=== PATIENT | male | born 1975 | race Hispanic/Latino ===

== ENCOUNTER 2017-08-12 00:42 | Emergency (ER) | payer BC ==
[2017-08-12 01:37] LABS: Hematocrit 37.5 % (42.0-52.0); Mean Platelet Volume 7.6 fL (7.4-10.4); Red Blood Cell (RBC) Count 3.99 mill/uL (4.70-6.10)
[2017-08-12 01:38] LABS: Neutrophil 32 % (42-75)
[2017-08-12 01:43] LABS: ALT (SGPT) 20 U/L (8-55); AST (SGOT) 19 U/L (5-34); Alkaline Phosphatase 139 U/L (40-150); Anion Gap 13 mmol/L (10-20); BUN (Urea Nitrogen) 13 mg/dL (8.9-20.6); Bilirubin, Total 0.4 mg/dL (0.2-1.2); Calc. Creatinine Clearance 0 mL/min (70-130); Calcium 9.6 mg/dL (7.8-10.44); Carbon Dioxide 27 mmol/L (22-29); Chloride 103 mmol/L (98-107); Estimated GFR-MDRD 74; Globulin 2.8 g/dL (2.4-3.5); Lipase 31 U/L (8-78)
[2017-08-12] MEDS ORDERED: Ondansetron HCl/PF 4 MG/2 ML Vial ONE (01:46)
[2017-08-12] MEDS ORDERED: Ketorolac Tromethamine 30 MG/ML VIAL ONE (02:16)
[2017-08-12 04:05] LABS: Bilirubin Negative (Negative); Blood, Urine Trace (Negative); Glucose, Urine (Dipstick) Negative (Negative); Ketone, Urine Negative (Negative); Nitrite Negative (Negative); Protein, Urine (Dipstick) 30 mg/dL (Neg-Trace)
[2017-08-12 04:19] LABS: Bacteria/HPF None Seen HPF (None Seen); Hyaline Casts/LPF NONE SEEN LPF (0-3 Hyaline); Squamous Epithelial None Seen HPF (0-3); WBC/HPF None Seen HPF (0-3)
--- NOTE | 2017-08-12 09:06 | CT ---
PRELIMINARY REPORT/[facility]/EMERGENCY AFTER HOURS PROCEDURE: EXAM: CT Abdomen and Pelvis With Intravenous Contrast EXAM DATE/TIME: Exam ordered 08/12/2017 1:58 AM CLINICAL HISTORY: 41 years old, male; Pain; Abdominal pain; Localized; Right lower quadrant (rlq); Patient HX: Er 3; 3 9m with pmhx chronic back pain, C/O sharp rlq abdominal pain starting at 2330, with associated nause a, no vomiting. Pain is increasing, had small, soft bm without relief. Afebrile. TECHNIQUE: Axial computed tomography images of the abdomen and pelvis with intravenous contrast. Coronal reformatted images were created and reviewed. CONTRAST: 95 mL of isovue 370 administered intravenously. COMPARISON: No relevant prior studies available. FINDINGS: Lower thorax: There is subpleural atelectasis of the dependent portions of the lungs. ABDOMEN: Liver: There are no focal liver lesions present. Gallbladder and bile ducts: The gallbladder is normal. There is no evidence of biliary ductal dilati on. No calcified stones. Pancreas: The pancreas is normal. No ductal dilation. Spleen: The spleen is normal. Adrenals: The adrenal glands are normal. Kidneys and ureters: There is a punctate 2 x 2 mm obstructing calculus at the RIGHT UVJ with associa yonas mild RIGHT hydroureteronephrosis. The left kidney is normal. Stomach and bowel: Patient is post leads gastrectomy. No evidence for leak or abscess. The duodenum is unremarkable. The colon is normal. There is no evidence of intestinal perforation or obstruction. Appendix: No appendix is specifically identified. There is no evidence of fluid collections or infla mmatory stranding in the right lower quadrant. PELVIS: Bladder: The bladder is normal. Reproductive: The prostate gland and seminal vesicles are normal. ABDOMEN and PELVIS: Intraperitoneal space: Normal. No free air. No significant fluid collection. Bones/joints: No acute fracture. No dislocation. Soft tissues: Normal. Vasculature: Normal. No abdominal aortic aneurysm. Lymph nodes: Normal. No enlarged lymph nodes. IMPRESSION: There is a punctate 2 x 2 mm obstructing calculus at the RIGHT UVJ with associated mild RIGHT hydrou reteronephrosis. Thank you for allowing us to participate in the care of your patient. Dictated and Authenticated by: Dru Mccormick MD 08/12/2017 2:28 AM Central Time ([place] \T\ [place]) FINAL REPORT ABDOMEN CT WITH CONTRAST PELVIC CT WITH CONTRAST: History: Chronic back pain. Sharp right lower quadrant abdominal pain with associated nausea. Comparison: None. Technique: Abdomen and pelvic CT performed with IV contrast. Coronal reformatted images are submitte d for interpretation. FINDINGS: This report is in agreement with the preliminary report by [facility]. Mild right sided obstructive uropath y secondary to a punctate calcification of the right ureterovesicular junction. Post-surgical changes due to previous bariatric surgery is noted. POS: SHI
[2017-08-12] MEDS ORDERED: ISOVUE-370 76%-LOCM 1 ML ONE (14:06)
== END 2017-08-12 04:26 | disposition home or self-care (01) ==
LOC: ERS 00:42
DX: N13.2 Hydronephrosis with renal and ureteral calculous obstruction (principal)
CPT/HCPCS: 36415; 74177; 80053; 81003; 81015; 83690; 85025; 96361; 96374; 96375; 96376; J1885; J2270; J2405

== ENCOUNTER 2017-08-14 04:43 | Emergency (ER) | payer BC ==
[2017-08-14] MEDS ORDERED: Ondansetron HCl/PF 4 MG/2 ML Vial ONE (05:04)
[2017-08-14] MEDS ORDERED: Ketorolac Tromethamine 30 MG/ML VIAL ONE (05:04)
[2017-08-14 05:11] LABS: #Basophils 0.1 thou/uL (0.0-0.2); #Eosinphils 0.1 thou/uL (0.0-0.7); #Lymphocytes 1.6 thou/uL (1.20-3.40); #Monocytes 0.4 thou/uL (0.11-0.59); #Neutrophils 10.6 thou/uL (1.40-6.50); %Basophils 0.5 % (0.0-1.0); %Eosinophils 0.6 % (0.0-10.0); %Lymphocytes 12.4 % (21.0-51.0); %Monocytes 3.3 % (0.0-10.0); Hematocrit 37.7 % (42.0-52.0); Mean Platelet Volume 7.6 fL (7.4-10.4); Red Blood Cell (RBC) Count 3.96 mill/uL (4.70-6.10); White Blood Cell (WBC) Count 12.7 thou/uL (4.8-10.8)
[2017-08-14 05:37] LABS: ALT (SGPT) 20 U/L (8-55); AST (SGOT) 19 U/L (5-34); Alkaline Phosphatase 134 U/L (40-150); Anion Gap 12 mmol/L (10-20); BUN (Urea Nitrogen) 11 mg/dL (8.9-20.6); Bilirubin, Total 0.5 mg/dL (0.2-1.2); Calc. Creatinine Clearance 0 mL/min (70-130); Calcium 10.2 mg/dL (7.8-10.44); Carbon Dioxide 28 mmol/L (22-29); Chloride 102 mmol/L (98-107); Estimated GFR-MDRD 58; Globulin 2.9 g/dL (2.4-3.5); Protein, Total 7.3 g/dL (6.0-8.3)
== END 2017-08-14 06:40 | disposition home or self-care (01) ==
LOC: ERS 04:43
DX: N23 Unspecified renal colic (principal); F43.10 Post-traumatic stress disorder, unspecified; Z79.899 Other long term (current) drug therapy
CPT/HCPCS: 80053; 85025; 96361; 96374; 96375; J1885; J2405

== ENCOUNTER 2020-08-23 09:14 | Emergency (ER) | payer BC ==
[2020-08-23 11:01] LABS: #Basophils 0.1 thou/uL (0.0-0.2); #Eosinphils 0.2 thou/uL (0.0-0.7); #Lymphocytes 2.1 thou/uL (1.20-3.40); #Monocytes 0.4 thou/uL (0.11-0.59); #Neutrophils 3.1 thou/uL (1.40-6.50); %Basophils 1.1 % (0.0-1.0); %Eosinophils 3.9 % (0.0-10.0); %Lymphocytes 35.9 % (21.0-51.0); %Monocytes 5.9 % (0.0-10.0); %Neutrophils 53.2 % (42.0-75.0); Mean Corpuscular Hemoglobin 32.6 pg (27.0-31.0); Mean Corpuscular Volume 93.1 fL (78.0-98.0); Mean Platelet Volume 8.4 fL (7.4-10.4); Platelet Count 303 thou/uL (130-400); RBC Distribution Width 11.8 % (11.5-14.5); Red Blood Cell (RBC) Count 3.99 mill/uL (4.70-6.10); White Blood Cell (WBC) Count 5.9 thou/uL (4.8-10.8)
[2020-08-23 11:33] LABS: ALT (SGPT) 11 U/L (8-55); AST (SGOT) 20 U/L (5-34); Albumin 4.1 g/dL (3.5-5.0); Alkaline Phosphatase 97 U/L (40-110); Anion Gap 11 mmol/L (10-20); BUN (Urea Nitrogen) 10 mg/dL (8.9-20.6); Bilirubin, Total 0.6 mg/dL (0.2-1.2); Calc. Creatinine Clearance 0 mL/min (70-130); Calcium 9.1 mg/dL (7.8-10.44); Carbon Dioxide 27 mmol/L (22-29); Chloride 105 mmol/L (98-107); Estimated GFR-MDRD 74; Globulin 2.5 g/dL (2.4-3.5); Glucose 92 mg/dL (70-105); Potassium 4.4 mmol/L (3.5-5.1); Protein, Total 6.6 g/dL (6.0-8.3); Sodium 139 mmol/L (136-145)
[2020-08-23 12:23] LABS: Bilirubin Negative (Negative); Blood, Urine Negative (Negative); Clarity Clear (Clear); Glucose, Urine (Dipstick) Normal (Negative); Ketone, Urine Negative (Negative); Leukocyte Negative Leu/uL (Negative); Nitrite Negative (Negative); Protein, Urine (Dipstick) Negative (Neg-Trace); Specific Gravity, Urine 1.018 (1.002-1.036); pH, Urine 7.5 (5.0-9.0)
--- NOTE | 2020-08-23 15:35 | MRI ---
MRI LUMBAR SPINE WITH AND WITHOUT CONTRAST: Date: 08/23/2020 INDICATION: Weakness with incontinence. Low back pain. FINDINGS: The lumbar vertebra maintain normal height and alignment. Vertebral body signal is normally maintain ed. The disc spaces are normally preserved. Mild degenerative disc signal changes at L5-S1 noted. No significant disc bulge or protrusion at L1-2 or L2-3 levels. Mild facet arthrosis at these levels; however, no central canal or foraminal stenosis. L3-4: Very mild disc bulge. Mild to moderate facet hypertrophy. Small central canal due to short ped icles is seen throughout the spinal canal. This results in mild central canal stenosis at L3-4. L4-5: Mild disc bulge flattens the thecal sac. Moderate facet and ligamentous hypertrophy. These jil nges combined with short pedicles results in mild to moderate central canal stenosis at L4-5. L5-S1: Postoperative changes are noted with posterior laminectomy change. There is abnormal signal i n the anterior spinal canal consistent with broad based disc bulge with annular fissure. There is enh ancement within this signal on the postcontrast images indicating diskectomy change with postoperativ e enhancement. I cannot exclude residual or recurrent disc within the anterior spinal canal. There is signal encroaching into the left foramina consistent with disc osteophyte complex which appe ars to displace the exiting left L5 nerve root. IMPRESSION: 1. Postoperative changes at L5-S1 as described. Residual recurrent disc at L5-S1 with left foraminal stenosis as described. 2. Central canal stenosis at L3-4 and L4-5 as described above. POS: THEODORE
[2020-08-23] MEDS ORDERED: HYDROcodone/Acetaminophen 5/325 mg Tablet ONE (15:38)
[2020-08-23] MEDS ORDERED: Dexamethasone 10 MG/ML VIAL ONE (16:19)
--- NOTE | 2020-08-23 21:20 | CON ---
DATE OF CONSULTATION: 08/23/2020 CHIEF COMPLAINT: Lower back pain with left leg weakness for 2 weeks. HISTORY OF PRESENT ILLNESS: Mr. Nunez is a 44-year-old gentleman with a prior history of L4-L5 laminectomy in 2015, who did very well. He states for the past two weeks, he has had left leg numbness, pain and weakness. The longer he walks, the more numb his leg becomes. Due to the new onset of symptoms and spontaneous incontinence, we will order an L-spine MRI with and without contrast. REVIEW OF SYSTEMS: CONSTITUTIONAL: Denies fever or chills. ENT: Denies change in vision or hearing. CARDIAC: Denies chest pain, shortness of breath, diaphoresis. PULMONARY: Denies shortness of breath, cough, hemoptysis. GI: Denies abdominal pain, nausea, vomiting, diarrhea, change in stool formation and consistency. : Denies trouble with urination, frequency of urination, bloody urine. SKIN: Denies skin rash, bruising, bleeding, skin masses. MUSCULOSKELETAL: As per history of present illness. NEUROLOGICAL: As per history of present illness. PSYCHOLOGICAL: As per history of present illness. MEDICATIONS: Prazosin 1 mg, lamotrigine 100 mg, venlafaxine ER 225 mg. ALLERGIES: NO KNOWN DRUG ALLERGIES. PAST MEDICAL HISTORY: Anxiety, depression, chronic lower back pain. PAST SURGICAL HISTORY: Herniated disk repair, L4-L5, 2014; arthroscopic surgery, left knee, 2011; right knee, arthroscopic, 2016; gastric sleeve in 2017. SOCIAL HISTORY: Nonsmoker. Denies illicit drugs or alcohol use. HOSPITALIZATIONS: Above surgeries. PHYSICAL EXAMINATION: VITAL SIGNS: Weight 215, height 69 inches, BMI 31.75. HEENT: Pupils are equal. Extraocular movements are intact. NECK: Soft, supple. No masses are noted. Range of motion is intact and nonpainful. NEUROLOGICAL: Awake, alert, and oriented x3. Memory, attention, fund of knowledge normal. Cranial nerves are grossly intact. EXTREMITIES: Lower extremities, he has 4/5 strength in his left iliopsoas, quadriceps, hamstrings, anterior tib, EHL, and gastrocnemius. There is no area of dermatomal sensory loss. The reflexes are symmetric. Toes are downgoing. GCS is 15. He has good rectal tone. IMAGING: L-spine MRI shows postoperative changes at L5-S1. There is left L5-S1 herniated lumbar disk with foraminal stenosis. There is also L3-4, L4-5 canal stenosis. PLAN: The patient was seen in our clinic on July 18. States he has an appointment with the Pain Management, Dr. Hammer on August 30. Currently, he is not in physical therapy and we will schedule him for physical therapy. If he is not improving with conservative management in 6 to 8 weeks, he will call the clinic and schedule an appointment. Job ID: [id number] MTDD
== END 2020-08-23 16:29 | disposition home or self-care (01) ==
LOC: ERS 09:14
DX: M54.5 Low back pain (principal); M62.81 Muscle weakness (generalized); R29.2 Abnormal reflex; F41.9 Anxiety disorder, unspecified; F43.10 Post-traumatic stress disorder, unspecified; Z79.899 Other long term (current) drug therapy
CPT/HCPCS: 36415; 72158; 80053; 81003; 85025; 96372; J1100

== ENCOUNTER 2020-11-20 20:49 | Emergency (ER) | payer BC ==
[~2020-11-20 20:49] MED LIST: Magnevist 469MG/ML 20 ML VIAL ONE
--- NOTE | 2020-11-21 00:14 | MRI ---
Exam: Lumbar spine MRI with and without contrast HISTORY: Low back pain since yesterday. Occasional numbness in both legs. No incontinence. Previous l umbar surgery. COMPARISON: 08/23/2020 FINDINGS: Appropriate T1 marrow signal intensity of the lumbar vertebra. Lumbar spine vertebral body height is maintained. No fracture. No significant STIR hyperintensity to suggest vertebral body edema or ligamentous injury. Postcontrast images do not demonstrate any abnormal enhancement within the vertebral bodies. No abnor mal enhancement within the thecal sac including the cauda equina and conus medullaris. Appropriate signal intensity in the visualized paraspinal muscles and solid organs. Conus medullaris terminates at the mid to lower aspect of T12. There is partial sacralization of L5 with pseudoarthrosis of the right L5 ala and the adjacent sacrum . T12-L1: Adequate disc hydration. No significant central canal stenosis or significant neural foramina l narrowing L1-L2: Adequate disc hydration. Broad-based disc bulge minimally flattens the ventral thecal sac. No significant central canal stenosis or significant neural foraminal narrowing L1-2-L3: Adequate disc hydration. No significant loss of disc space height. Broad-based disc bulge, m inimal ligament flavum thickening and facet hypertrophy result in mild central canal stenosis, unchanged. Patent bilateral neural foramina L3-L4: Adequate disc hydration. Broad-based disc bulge, ligamentum flavum thickening and facet hypert rophy result in stable moderate central canal stenosis. Partial obscuration of bilateral traversing L4 nerve roots. Mild to moderate bilateral neural foraminal narrowing L4-L5: Posterior laminectomy defect. Stable disc desiccation. Broad-based disc bulge with associated left subarticular annular fissure is once again demonstrated. No significant central canal stenosis. Moderate right and moderate to severe left neural foraminal narrowing, unchanged. Minimal e nhancing scar tissue at the laminectomy defect site. L5-S1: No significant central canal stenosis. Patent bilateral neural foramina IMPRESSION: 1. Essentially stable degenerative changes throughout the lumbar spine. 2. Stable postoperative changes at L4-L5. Note, on the previous examination this level was labeled as L5-S1. However, the L5 vertebral body is below the surgical site as there is pseudoarthrosis of the left L5 ala with the sacrum.
[2020-11-21] MEDS ORDERED: Dexamethasone 4 mg/ml Vial ONE (00:59)
== END 2020-11-21 01:08 | disposition home or self-care (01) ==
LOC: ERS 20:49
DX: M48.061 Spinal stenosis, lumbar region without neurogenic claudication (principal)
CPT/HCPCS: 72158; 96374; A9579; J1100

== ENCOUNTER 2020-12-13 06:05 | Day surgery (SDC) | payer BC ==
[2020-12-11 11:48] VITALS: BMI 31.7
[2020-12-13] MEDS ORDERED: Thrombin 5000 UNITS/5 ML VIAL ONE (06:24)
[2020-12-13] MEDS ORDERED: Midazolam HCl 2 mg/2 ml Vial ONE (07:02)
[2020-12-13] MEDS ORDERED: Ketamine 50 MG/ML (10ML VIAL) ONE (07:04)
[2020-12-13] MEDS ORDERED: Fentanyl 250 MCG/5 ML VIAL ONE (07:04)
[2020-12-13] MEDS ORDERED: SUGAMMADEX SODIUM 200 MG/2 ML VIAL ONE (08:41)
[2020-12-13] MEDS ORDERED: Glycopyrrolate 0.2 MG/ML 5 ML SYRINGE ONE (09:19)
[2020-12-13] MEDS ORDERED: PHENYLEPHRINE-NS 100 MCG/ML 10 ML SYRINGE ONE (09:19)
[2020-12-13] MEDS ORDERED: Dexamethasone 20 MG/5 ML VIAL ONE (09:19)
[2020-12-13] MEDS ORDERED: Ondansetron PF 4 MG/2 ML Vial ONE (09:19)
[2020-12-13] MEDS ORDERED: Ketorolac Tromethamine 30 MG/ML VIAL ONE (09:19)
[2020-12-13] MEDS ORDERED: PROPOFOL 200 MG/20 ML VIAL ONE (09:19)
[2020-12-13] MEDS ORDERED: Lidocaine 1% PF 5 ML VIAL ONE (09:19)
[2020-12-13] MEDS ORDERED: Rocuronium Bromide 10 MG/ML (10ML VIAL) ONE (09:19)
[2020-12-13] MEDS ORDERED: Fentanyl 100 MCG/2 ML VIAL ONE (09:37)
[2020-12-13] MEDS ORDERED: Morphine 2 MG/ML VIAL ONE (12:34)
[2020-12-13] MEDS ORDERED: HYDROcodone/Acetaminophen 5/325 mg Tablet ONE ×2 (13:03→13:41)
[2020-12-13] MEDS ORDERED: tiZANidine HCl 4 MG TAB ONE (16:31)
== END 2020-12-13 16:48 | disposition home or self-care (01) ==
LOC: SDC 06:05
PROVIDERS: ATTEND Surgery
PROC: 01NB0ZZ Release Lumbar Nerve, Open Approach (ICD-10-PCS; principal; 2020-12-13)
DX: M48.062 Spinal stenosis, lumbar region with neurogenic claudication (principal); M54.16 Radiculopathy, lumbar region; F43.10 Post-traumatic stress disorder, unspecified; G47.33 Obstructive sleep apnea (adult) (pediatric); Z79.899 Other long term (current) drug therapy
CPT/HCPCS: 76000; J0690; J1100; J1885; J2250; J2270; J2405; J2704; J3010; J3370; J3490

== ENCOUNTER 2021-03-15 12:32 | Emergency (ER) | payer BC ==
[2021-03-15] MEDS ORDERED: Acetaminophen 500 MG TAB ONE (13:42)
[2021-03-15] MEDS ORDERED: Dexamethasone 10 MG/ML VIAL ONE (13:42)
[2021-03-15 13:46] LABS: #Lymphocytes 1.1 thou/uL (1.20-3.40); #Monocytes 0.4 thou/uL (0.11-0.59); #Neutrophils 6.8 thou/uL (1.40-6.50); %Basophils 0.6 % (0.0-1.0); %Lymphocytes 13.5 % (21.0-51.0); %Monocytes 4.2 % (0.0-10.0); %Neutrophils 81.8 % (42.0-75.0); Mean Corpuscular HGB CONC 34.2 g/dL (32.0-36.0); Mean Corpuscular Hemoglobin 30.9 pg (27.0-31.0); Mean Corpuscular Volume 90.5 fL (78.0-98.0); Mean Platelet Volume 7.4 fL (7.4-10.4); Platelet Count 328 thou/uL (130-400); RBC Distribution Width 11.8 % (11.5-14.5); Red Blood Cell (RBC) Count 4.54 mill/uL (4.70-6.10); White Blood Cell (WBC) Count 8.3 thou/uL (4.8-10.8)
[2021-03-15 13:58] LABS: ALT (SGPT) 13 U/L (8-55); AST (SGOT) 27 U/L (5-34); Albumin 4.2 g/dL (3.5-5.0); Alkaline Phosphatase 128 U/L (40-110); Anion Gap 15 mmol/L (10-20); BUN (Urea Nitrogen) 15 mg/dL (8.9-20.6); Bilirubin, Total 0.6 mg/dL (0.2-1.2); Calc. Creatinine Clearance 0 mL/min (70-130); Calcium 9.5 mg/dL (7.8-10.44); Carbon Dioxide 27 mmol/L (22-29); Chloride 100 mmol/L (98-107); Globulin 3.5 g/dL (2.4-3.5); Glucose 107 mg/dL (70-105); Potassium 3.7 mmol/L (3.5-5.1); Protein, Total 7.7 g/dL (6.0-8.3); Sodium 138 mmol/L (136-145)
== END 2021-03-15 16:18 | disposition home or self-care (01) ==
LOC: ERS 12:32
DX: U07.1 COVID-19 (principal)
CPT/HCPCS: 71045; 80053; 84484; 85025; 93005; 96374; J1100

== ENCOUNTER 2022-11-24 18:19 | Emergency (ER) | payer OTHER ==
[2022-11-24 19:23] LABS: #Eosinphils 0.1 thou/uL (0.0-0.7); #Lymphocytes 2.1 thou/uL (1.20-3.40); #Monocytes 0.5 thou/uL (0.11-0.59); #Neutrophils 4.1 thou/uL (1.40-6.50); %Basophils 0.2 % (0.0-1.0); %Eosinophils 1.8 % (0.0-10.0); %Monocytes 7.1 % (0.0-10.0); %Neutrophils 59.9 % (42.0-75.0); Hemoglobin 11.7 g/dL (14.0-18.0); Mean Corpuscular HGB CONC 33.7 g/dL (32.0-36.0); Mean Corpuscular Hemoglobin 32.6 pg (27.0-31.0); Mean Corpuscular Volume 96.7 fl (78.0-98.0); Platelet Count 352 10x3/uL (130-400); RBC Distribution Width 12.7 % (11.5-14.5); White Blood Cell (WBC) Count 6.8 10x3/uL (4.8-10.8)
[2022-11-24 19:49] LABS: ALT (SGPT) 14 U/L (8-55); AST (SGOT) 14 U/L (5-34); Albumin 4.3 g/dL (3.5-5.0); Alkaline Phosphatase 90 U/L (40-110); Anion Gap 11 mmol/L (10-20); BUN (Urea Nitrogen) 10 mg/dL (8.9-20.6); Bilirubin, Total 0.6 mg/dL (0.2-1.2); Calc. Creatinine Clearance 0 mL/min (70-130); Calcium 8.9 mg/dL (7.8-10.44); Carbon Dioxide 27 mmol/L (22-29); Chloride 103 mmol/L (98-107); Estimated GFR 78; Glucose 88 mg/dL (70-105); Lipase 11 U/L (8-78); Potassium 3.9 mmol/L (3.5-5.1); Protein, Total 6.3 g/dL (6.0-8.3); Sodium 137 mmol/L (136-145)
== END 2022-11-24 21:53 | disposition home or self-care (01) ==
LOC: ERS 18:19
DX: M54.12 Radiculopathy, cervical region (principal)
CPT/HCPCS: 36415; 71045; 80053; 83690; 84484; 85025; 93005

== ENCOUNTER 2023-03-20 14:13 | Outpatient (CLI) | payer OTHER | END 2023-03-20 14:14 | disposition home or self-care (01) | LOC: BICULT 14:13 | DX: R94.4 Abnormal results of kidney function studies (principal) | CPT/HCPCS: 76770 ==

== ENCOUNTER 2023-04-20 08:32 | Day surgery (SDC) | payer OTHER ==
[2023-04-16 10:26] VITALS: BMI 25.5
[2023-04-20 09:02] LABS: PTT 33.3 sec (22.9-36.1); Prothrombin Time 13.3 sec (12.0-14.7)
[2023-04-20 11:59] VITALS: BP 132/83; TEMP 97.6
== END 2023-04-20 12:30 | disposition home or self-care (01) ==
LOC: CT 08:32
PROVIDERS: ATTEND Internal Medicine
PROC: 079T3ZX Drainage of Bone Marrow, Percutaneous Approach, Diagnostic (ICD-10-PCS; principal; 2023-04-20)
DX: D53.9 Nutritional anemia, unspecified (principal); C90.00 Multiple myeloma not having achieved remission; F41.9 Anxiety disorder, unspecified; I12.9 Hypertensive chronic kidney disease with stage 1 through stage 4 chronic kidney disease, or unspecified chronic kidney disease; N18.30 Chronic kidney disease, stage 3 unspecified; R60.9 Edema, unspecified; R80.9 Proteinuria, unspecified
CPT/HCPCS: 20225; 36415; 77012; 77075; 80048; 82040; 82570; 83735; 83883; 83970; 84100; 84155; 84156; 84165; 84166; 85097; 85610; 85730; 88184; 88237; 88305; 88311; 88313

== ENCOUNTER 2023-04-22 14:29 | Inpatient (IN) | payer OTHER ==
[~2023-04-22 14:29] MED LIST changes: -Magnevist 469MG/ML 20 ML VIAL ONE; +Midazolam HCl 2 mg/2 ml Vial ONE; +Sodium Bicarbonate 2.5 MEQ/5 ML VIAL ONE; +fentaNYL 50 mcg/mL 1 mL Vial ONE
[2023-04-22 14:55] LABS: Hemoglobin 9.1 g/dL (14.0-18.0); Mean Corpuscular HGB CONC 34.9 g/dL (32.0-36.0); Mean Corpuscular Hemoglobin 31.9 pg (27.0-31.0); Mean Corpuscular Volume 91.6 fl (78.0-98.0); Mean Platelet Volume 9.3 fL (7.4-10.4); Platelet Count 304 10x3/uL (130-400); RBC Distribution Width 12.9 % (11.5-14.5); Red Blood Cell (RBC) Count 2.85 mill/uL (4.70-6.10); White Blood Cell (WBC) Count 6.4 10x3/uL (4.8-10.8)
[2023-04-22 14:56] LABS: Delete Auto Diff?? YES; Manual Diff?? YES
[2023-04-22 15:11] LABS: ALT (SGPT) 44 U/L (8-55); AST (SGOT) 30 U/L (5-34); Albumin 4.4 g/dL (3.5-5.0); Alkaline Phosphatase 92 U/L (40-110); Anion Gap 14 mmol/L (10-20); BUN (Urea Nitrogen) 28 mg/dL (8.9-20.6); Bilirubin, Total 0.8 mg/dL (0.2-1.2); Calc. Creatinine Clearance 0 mL/min (70-130); Carbon Dioxide 24 mmol/L (22-29); Chloride 104 mmol/L (98-107); Estimated GFR 18; Globulin 2.6 g/dL (2.4-3.5); Glucose 148 mg/dL (70-105); Potassium 4.3 mmol/L (3.5-5.1); Sodium 138 mmol/L (136-145)
[2023-04-22 15:36] LABS: CellaVision Operator ID LAB.KB; Eosinophils 1 % (0-10); Lymphocytes 12 % (21-51); Monocytes 3 % (0-10); Neutrophil 83 % (42-75); Ovalocytes SLIGHT = 2-5 cells HPF (0-1); Platelet Adequacy Comment Platelets Normal; Polychromasia SLIGHT = 2-3 cells HPF (0-2); Reactive Lymphocytes 1 % (0-10); Smudge Cells 9.1 %; Stomatocytes SLIGHT = 2-5 cells HPF (0-1); Total Cell Count 99
[2023-04-22 16:21] LABS: Bacteria/HPF 2+ HPF (None Seen); Bilirubin Negative (Negative); Blood, Urine 2+ (Negative); CAUTI Indications for Culture Dysuria,urgency,freq; Clarity Turbid (Clear); Glucose, Urine (Dipstick) Normal (Negative); Ketone, Urine Negative (Negative); Leukocyte 25 Leu/uL (Negative); Nitrite Negative (Negative); Protein, Urine (Dipstick) 100 mg/dL (Neg-Trace); RBC/HPF 0-3 HPF (0-3); Specific Gravity, Urine 1.027 (1.002-1.036); Squamous Epithelial 0-3 HPF (0-3); Urobilinogen Normal mg/dL (Less than 2); pH, Urine 5.5 (5.0-9.0)
[2023-04-22 16:23] LABS: Urine Culture Reflex No No
[2023-04-22 17:57] VITALS: BMI 25.1
[2023-04-22] MEDS ORDERED: Acetaminophen 325 MG TAB PO PRN (18:10)
[2023-04-22] MEDS: Sodium Chloride 0.9% 1,000 ML IV SCH (18:10)
[2023-04-22] MEDS ORDERED: Dexamethasone 4 MG TAB PO SCH (18:42)
[2023-04-22] MEDS: Labetalol HCl 100 MG TAB PO SCH (19:49)
[2023-04-22] MEDS: cefTRIAXone\\ROCEPHIN 1 GM in Sodium Chloride 0.9% 100 ML IVPB SCH (19:50)
[2023-04-22] MEDS: Prazosin HCl 1 MG CAP PO SCH (19:50)
[2023-04-23] MEDS: Sodium Chloride 0.9% 1,000 ML IV SCH ×3 (04:52→18:03)
[2023-04-23 06:35] LABS: #Monocytes 0.4 thou/uL (0.11-0.59); #Neutrophils 6.2 thou/uL (1.40-6.50); %Lymphocytes 9.5 % (21.0-51.0); %Monocytes 5.5 % (0.0-10.0); %Neutrophils 84.5 % (42.0-75.0); Hemoglobin 7.1 g/dL (14.0-18.0); Mean Corpuscular HGB CONC 34.6 g/dL (32.0-36.0); Mean Corpuscular Hemoglobin 31.8 pg (27.0-31.0); Mean Corpuscular Volume 91.9 fl (78.0-98.0); Mean Platelet Volume 9.5 fL (7.4-10.4); Platelet Count 247 10x3/uL (130-400); RBC Distribution Width 12.8 % (11.5-14.5); Red Blood Cell (RBC) Count 2.23 mill/uL (4.70-6.10); White Blood Cell (WBC) Count 7.3 10x3/uL (4.8-10.8)
[2023-04-23 06:58] LABS: Anion Gap 13 mmol/L (10-20); BUN (Urea Nitrogen) 26 mg/dL (8.9-20.6); Calc. Creatinine Clearance 29 mL/min (70-130); Calcium 9.3 mg/dL (7.8-10.44); Carbon Dioxide 21 mmol/L (22-29); Chloride 109 mmol/L (98-107); Estimated GFR 21; Glucose 136 mg/dL (70-105); Potassium 4.7 mmol/L (3.5-5.1); Sodium 138 mmol/L (136-145)
[2023-04-23] MEDS: Labetalol HCl 100 MG TAB PO SCH ×2 (08:52→20:31)
[2023-04-23] MEDS: Dexamethasone 4 MG TAB PO SCH (08:53)
[2023-04-23 16:53] LABS: Hemoglobin 7.9 g/dL (14.0-18.0)
[2023-04-23] MEDS: traMADol HCl 50 MG TAB PO PRN (18:14)
[2023-04-23] MEDS: cefTRIAXone\\ROCEPHIN 1 GM in Sodium Chloride 0.9% 100 ML IVPB SCH (20:31)
[2023-04-23] MEDS: Prazosin HCl 1 MG CAP PO SCH (20:31)
[2023-04-24] MEDS: Sodium Chloride 0.9% 1,000 ML IV SCH ×2 (02:58→16:04)
[2023-04-24 05:09] LABS: #Monocytes 0.4 thou/uL (0.11-0.59); #Neutrophils 5.6 thou/uL (1.40-6.50); %Basophils 0.1 % (0.0-1.0); %Lymphocytes 9.6 % (21.0-51.0); %Monocytes 6.3 % (0.0-10.0); %Neutrophils 83.4 % (42.0-75.0); Hemoglobin 6.5 g/dL (14.0-18.0); Mean Corpuscular HGB CONC 33.5 g/dL (32.0-36.0); Mean Corpuscular Hemoglobin 31.9 pg (27.0-31.0); Mean Platelet Volume 9.2 fL (7.4-10.4); Platelet Count 221 10x3/uL (130-400); RBC Distribution Width 13.1 % (11.5-14.5); Red Blood Cell (RBC) Count 2.04 mill/uL (4.70-6.10); White Blood Cell (WBC) Count 6.7 10x3/uL (4.8-10.8)
[2023-04-24 05:25] LABS: Mean Corpuscular Volume 95.1 fl (78.0-98.0)
[2023-04-24 05:36] LABS: ALT (SGPT) 32 U/L (8-55); AST (SGOT) 18 U/L (5-34); Albumin 3.5 g/dL (3.5-5.0); Alkaline Phosphatase 62 U/L (40-110); Anion Gap 13 mmol/L (10-20); BUN (Urea Nitrogen) 27 mg/dL (8.9-20.6); Bilirubin, Total 0.3 mg/dL (0.2-1.2); Calc. Creatinine Clearance 32 mL/min (70-130); Calcium 8.9 mg/dL (7.8-10.44); Carbon Dioxide 21 mmol/L (22-29); Chloride 111 mmol/L (98-107); Estimated GFR 24; Globulin 1.8 g/dL (2.4-3.5); Glucose 128 mg/dL (70-105); Potassium 4.4 mmol/L (3.5-5.1); Protein, Total 5.3 g/dL (6.0-8.3); Sodium 141 mmol/L (136-145)
[2023-04-24] MEDS ORDERED: Bortezomib 3.5 MG SDV VIAL SC SCH (09:00)
[2023-04-24] MEDS ORDERED: SODIUM CHLORIDE 0.9% IVPB SCH (09:00)
[2023-04-24] MEDS ORDERED: CYCLOPHOSPHAMIDE IVPB SCH (09:00)
[2023-04-24] MEDS ORDERED: Dexamethasone 40 MG in Sodium Chloride 0.9% 50 ML IVPB SCH (09:00)
[2023-04-24] MEDS: Dexamethasone 4 MG TAB PO SCH (09:36)
[2023-04-24] MEDS: Labetalol HCl 100 MG TAB PO SCH ×2 (09:37→20:12)
[2023-04-24] MEDS: valACYclovir 500 MG TAB PO SCH (09:37)
[2023-04-24] MEDS: Venlafaxine 75 MG TAB PO SCH (09:37)
[2023-04-24 10:22] LABS: Hemoglobin 6.7 g/dL (14.0-18.0)
[2023-04-24] MEDS ORDERED: Dexamethasone Sod Phosphate 40 MG in Sodium Chloride 0.9% 50 ML IVPB SCH (11:30)
[2023-04-24] MEDS ORDERED: ADMIXTURE FEE SC SCH (13:15)
[2023-04-24] MEDS ORDERED: BORTEZOMIB SC SCH (13:15)
[2023-04-24] MEDS: Prazosin HCl 1 MG CAP PO SCH (20:12)
[2023-04-24] MEDS: cefTRIAXone\\ROCEPHIN 1 GM in Sodium Chloride 0.9% 100 ML IVPB SCH (20:14)
[2023-04-25] MEDS: Sodium Chloride 0.9% 1,000 ML IV SCH ×3 (03:10→23:23)
[2023-04-25 05:33] LABS: #Monocytes 0.5 thou/uL (0.11-0.59); #Neutrophils 4.5 thou/uL (1.40-6.50); %Lymphocytes 13.7 % (21.0-51.0); %Monocytes 8.7 % (0.0-10.0); %Neutrophils 77.1 % (42.0-75.0); Hemoglobin 7.2 g/dL (14.0-18.0); Mean Corpuscular HGB CONC 34.1 g/dL (32.0-36.0); Mean Corpuscular Hemoglobin 31.7 pg (27.0-31.0); Mean Platelet Volume 9.3 fL (7.4-10.4); Platelet Count 219 10x3/uL (130-400); Red Blood Cell (RBC) Count 2.27 mill/uL (4.70-6.10); White Blood Cell (WBC) Count 5.8 10x3/uL (4.8-10.8)
[2023-04-25 06:04] LABS: ALT (SGPT) 50 U/L (8-55); AST (SGOT) 26 U/L (5-34); Albumin 3.4 g/dL (3.5-5.0); Alkaline Phosphatase 57 U/L (40-110); Anion Gap 10 mmol/L (10-20); BUN (Urea Nitrogen) 24 mg/dL (8.9-20.6); Bilirubin, Total 0.3 mg/dL (0.2-1.2); Calc. Creatinine Clearance 34 mL/min (70-130); Calcium 8.7 mg/dL (7.8-10.44); Carbon Dioxide 24 mmol/L (22-29); Chloride 113 mmol/L (98-107); Estimated GFR 26; Globulin 1.6 g/dL (2.4-3.5); Glucose 110 mg/dL (70-105); Potassium 4.6 mmol/L (3.5-5.1); Sodium 142 mmol/L (136-145)
[2023-04-25] MEDS: valACYclovir 500 MG TAB PO SCH (08:19)
[2023-04-25] MEDS: Labetalol HCl 100 MG TAB PO SCH ×2 (08:19→20:02)
[2023-04-25] MEDS: Dexamethasone 4 MG TAB PO SCH (08:19)
[2023-04-25] MEDS: Venlafaxine 75 MG TAB PO SCH (08:19)
[2023-04-25] MEDS ORDERED: Dexamethasone 4 MG TAB PO SCH (11:45)
[2023-04-25] MEDS ORDERED: Labetalol HCl 100 MG TAB PO SCH (11:45)
[2023-04-25] MEDS ORDERED: Venlafaxine 75 MG TAB PO SCH (11:45)
[2023-04-25] MEDS ORDERED: valACYclovir 500 MG TAB PO SCH (11:45)
[2023-04-25] MEDS ORDERED: Polyethylene Glycol 3350 17 GM Packet PO PRN (11:57)
[2023-04-25] MEDS ORDERED: Docusate 100 MG CAP PO PRN (11:57)
[2023-04-25] MEDS: Ondansetron PF 4 MG/2 ML Vial IVP PRN (12:57)
[2023-04-25] MEDS: Prazosin HCl 1 MG CAP PO SCH (20:03)
[2023-04-25] MEDS: cefTRIAXone\\ROCEPHIN 1 GM in Sodium Chloride 0.9% 100 ML IVPB SCH (20:03)
[2023-04-26 06:04] LABS: #Monocytes 0.3 thou/uL (0.11-0.59); #Neutrophils 3.7 thou/uL (1.40-6.50); %Lymphocytes 11.1 % (21.0-51.0); %Monocytes 7.1 % (0.0-10.0); %Neutrophils 81.4 % (42.0-75.0); Hemoglobin 7.1 g/dL (14.0-18.0); Mean Corpuscular HGB CONC 33.3 g/dL (32.0-36.0); Mean Corpuscular Hemoglobin 31.7 pg (27.0-31.0); Mean Corpuscular Volume 95.1 fl (78.0-98.0); Platelet Count 236 10x3/uL (130-400); RBC Distribution Width 13.7 % (11.5-14.5); Red Blood Cell (RBC) Count 2.24 mill/uL (4.70-6.10); White Blood Cell (WBC) Count 4.5 10x3/uL (4.8-10.8)
[2023-04-26 06:30] LABS: ALT (SGPT) 60 U/L (8-55); AST (SGOT) 25 U/L (5-34); Albumin 3.3 g/dL (3.5-5.0); Alkaline Phosphatase 60 U/L (40-110); Anion Gap 12 mmol/L (10-20); BUN (Urea Nitrogen) 24 mg/dL (8.9-20.6); Bilirubin, Total 0.3 mg/dL (0.2-1.2); Calc. Creatinine Clearance 35 mL/min (70-130); Calcium 8.7 mg/dL (7.8-10.44); Carbon Dioxide 20 mmol/L (22-29); Chloride 114 mmol/L (98-107); Estimated GFR 26; Globulin 1.6 g/dL (2.4-3.5); Glucose 123 mg/dL (70-105); Potassium 4.9 mmol/L (3.5-5.1); Protein, Total 4.9 g/dL (6.0-8.3); Sodium 141 mmol/L (136-145)
[2023-04-26] MEDS ORDERED: Dexamethasone 4 MG TAB PO SCH (08:00)
[2023-04-26] MEDS: Ondansetron PF 4 MG/2 ML Vial IVP PRN ×2 (10:42→20:43)
[2023-04-26] MEDS: Labetalol HCl 100 MG TAB PO SCH ×2 (10:47→20:44)
[2023-04-26] MEDS: valACYclovir 500 MG TAB PO SCH (10:48)
[2023-04-26] MEDS: Venlafaxine 75 MG TAB PO SCH (10:49)
[2023-04-26] MEDS: Sodium Chloride 0.9% 1,000 ML IV SCH ×3 (10:55→23:16)
[2023-04-26] MEDS ORDERED: hydrALAZINE 20 MG/ML VIAL SLOW IVP PRN (13:58)
[2023-04-26] MEDS ORDERED: Calcium Carbonate 500 MG ChewTAB PO PRN (20:02)
[2023-04-26] MEDS: Morphine 2 MG/ML VIAL SLOW IVP SCH ×2 (20:30→22:15)
[2023-04-26] MEDS ORDERED: Famotidine 40 MG/5 ML Oral Suspension PO SCH (20:30)
[2023-04-26] MEDS: Sucralfate 1 GM TAB PO SCH (20:35)
[2023-04-26] MEDS: traMADol HCl 50 MG TAB PO PRN (20:42)
[2023-04-26] MEDS: Prazosin HCl 1 MG CAP PO SCH (20:44)
[2023-04-26] MEDS ORDERED: Morphine 2 MG/ML VIAL SLOW IVP SCH (23:00)
[2023-04-26] MEDS ORDERED: Ondansetron PF 4 MG/2 ML Vial IVP SCH (23:15)
[2023-04-26 23:35] LABS: #Monocytes 0.3 thou/uL (0.11-0.59); #Neutrophils 3.9 thou/uL (1.40-6.50); %Lymphocytes 6.9 % (21.0-51.0); %Monocytes 5.8 % (0.0-10.0); %Neutrophils 86.6 % (42.0-75.0); Hemoglobin 8.1 g/dL (14.0-18.0); Mean Corpuscular Hemoglobin 31.3 pg (27.0-31.0); Mean Platelet Volume 9.7 fL (7.4-10.4); Platelet Count 218 10x3/uL (130-400); RBC Distribution Width 13.7 % (11.5-14.5); Red Blood Cell (RBC) Count 2.59 mill/uL (4.70-6.10); White Blood Cell (WBC) Count 4.5 10x3/uL (4.8-10.8)
[2023-04-26 23:51] LABS: Mean Corpuscular Volume 91.9 fl (78.0-98.0)
[2023-04-27 00:14] LABS: ALT (SGPT) 78 U/L (8-55); AST (SGOT) 31 U/L (5-34); Albumin 3.5 g/dL (3.5-5.0); Alkaline Phosphatase 61 U/L (40-110); Anion Gap 11 mmol/L (10-20); BUN (Urea Nitrogen) 25 mg/dL (8.9-20.6); Bilirubin, Total 1.1 mg/dL (0.2-1.2); Calc. Creatinine Clearance 37 mL/min (70-130); Calcium 8.6 mg/dL (7.8-10.44); Carbon Dioxide 21 mmol/L (22-29); Chloride 110 mmol/L (98-107); Estimated GFR 28; Globulin 1.6 g/dL (2.4-3.5); Glucose 124 mg/dL (70-105); Lipase 33 U/L (8-78); Potassium 4.5 mmol/L (3.5-5.1); Protein, Total 5.1 g/dL (6.0-8.3); Sodium 137 mmol/L (136-145)
[2023-04-27] MEDS ORDERED: Sodium Bicarbonate 150 MEQ in Dextrose 5% in Water 1,000 ML IV SCH (00:30)
[2023-04-27] MEDS ORDERED: Morphine 2 MG/ML VIAL SLOW IVP PRN (04:39)
[2023-04-27 05:53] LABS: #Monocytes 0.6 thou/uL (0.11-0.59); #Neutrophils 4.3 thou/uL (1.40-6.50); %Lymphocytes 13.3 % (21.0-51.0); %Neutrophils 75.3 % (42.0-75.0); Hemoglobin 7.9 g/dL (14.0-18.0); Mean Corpuscular Volume 91.5 fl (78.0-98.0); Mean Platelet Volume 10.4 fL (7.4-10.4); Platelet Count 224 10x3/uL (130-400); RBC Distribution Width 13.6 % (11.5-14.5); Red Blood Cell (RBC) Count 2.47 mill/uL (4.70-6.10); White Blood Cell (WBC) Count 5.6 10x3/uL (4.8-10.8)
[2023-04-27 06:15] LABS: Anion Gap 8 mmol/L (10-20); BUN (Urea Nitrogen) 23 mg/dL (8.9-20.6); Calc. Creatinine Clearance 38 mL/min (70-130); Calcium 8.8 mg/dL (7.8-10.44); Carbon Dioxide 23 mmol/L (22-29); Chloride 109 mmol/L (98-107); Estimated GFR 29; Glucose 103 mg/dL (70-105); Potassium 3.9 mmol/L (3.5-5.1); Sodium 136 mmol/L (136-145)
[2023-04-27] MEDS: Sucralfate 1 GM TAB PO SCH ×5 (07:54→21:08)
[2023-04-27] MEDS: Venlafaxine 75 MG TAB PO SCH (09:24)
[2023-04-27] MEDS: valACYclovir 500 MG TAB PO SCH (09:24)
[2023-04-27] MEDS: Polyethylene Glycol 3350 17 GM Packet PO SCH (09:26)
[2023-04-27] MEDS: Ondansetron PF 4 MG/2 ML Vial IVP PRN (09:30)
[2023-04-27] MEDS ORDERED: Lidocaine 2% Viscous Solution 20 ML, Aluminum & Magnesium Hydroxide 30 ML, Donnatal Eli... SSW SCH (11:00)
[2023-04-27 11:12] LABS: Troponin I Less than 0.010 ng/mL (< 0.028)
[2023-04-27] MEDS: Labetalol HCl 100 MG TAB PO SCH ×2 (13:02→21:08)
[2023-04-27] MEDS ORDERED: Promethazine HCl 25 MG in Sodium Chloride 0.9% 50 ML IVPB SCH (14:14)
[2023-04-27] MEDS ORDERED: Dexamethasone 4 mg/ml Vial SLOW IVP SCH (15:15)
[2023-04-27] MEDS ORDERED: Dexamethasone 6 MG in Sodium Chloride 0.9% 50 ML IVPB SCH (15:15)
[2023-04-27] MEDS ORDERED: Ondansetron HCl/PF 6 MG in Sodium Chloride 0.9% 50 ML IVPB SCH (15:15)
[2023-04-27 18:13] LABS: A/G Ratio 1.7 (0.7-1.7); Albumin 3.2 g/dL (2.9-4.4); Alpha 1 0.2 g/dL (0.0-0.4); Alpha 2 0.5 g/dL (0.4-1.0); Beta 0.7 g/dL (0.7-1.3); Gamma 0.4 g/dL (0.4-1.8); Globulin, Total 1.9 g/dL (2.2-3.9); M-Spike 0.1 g/dL (Not Observed); Protein Electrophoresis Intrp Note: (.)
[2023-04-27] MEDS ORDERED: Famotidine 20 MG TAB PO SCH (21:00)
[2023-04-27] MEDS: Prazosin HCl 1 MG CAP PO SCH (21:08)
[2023-04-27] MEDS: Dexamethasone 4 mg/ml Vial SLOW IVP SCH (21:09)
[2023-04-27] MEDS: Ondansetron HCl/PF 6 MG in Sodium Chloride 0.9% 50 ML IVPB SCH (21:09)
[2023-04-28] MEDS: Dexamethasone 4 mg/ml Vial SLOW IVP SCH ×3 (05:47→22:02)
[2023-04-28] MEDS: Ondansetron HCl/PF 6 MG in Sodium Chloride 0.9% 50 ML IVPB SCH ×4 (05:47→22:27)
[2023-04-28 06:09] LABS: #Monocytes 0.2 thou/uL (0.11-0.59); #Neutrophils 3.1 thou/uL (1.40-6.50); %Lymphocytes 11.2 % (21.0-51.0); %Monocytes 6.4 % (0.0-10.0); %Neutrophils 82.1 % (42.0-75.0); Hemoglobin 8.7 g/dL (14.0-18.0); Mean Corpuscular HGB CONC 35.4 g/dL (32.0-36.0); Mean Corpuscular Hemoglobin 32.1 pg (27.0-31.0); Mean Corpuscular Volume 90.8 fl (78.0-98.0); Mean Platelet Volume 10.4 fL (7.4-10.4); Platelet Count 244 10x3/uL (130-400); RBC Distribution Width 13.4 % (11.5-14.5); Red Blood Cell (RBC) Count 2.71 mill/uL (4.70-6.10); White Blood Cell (WBC) Count 3.8 10x3/uL (4.8-10.8)
[2023-04-28 06:31] LABS: Anion Gap 11 mmol/L (10-20); BUN (Urea Nitrogen) 22 mg/dL (8.9-20.6); Calc. Creatinine Clearance 34 mL/min (70-130); Calcium 8.8 mg/dL (7.8-10.44); Carbon Dioxide 26 mmol/L (22-29); Chloride 106 mmol/L (98-107); Estimated GFR 26; Glucose 125 mg/dL (70-105); Potassium 4.2 mmol/L (3.5-5.1); Sodium 139 mmol/L (136-145)
[2023-04-28] MEDS: Labetalol HCl 100 MG TAB PO SCH ×2 (08:27→22:00)
[2023-04-28] MEDS: Sucralfate 1 GM TAB PO SCH ×4 (08:28→22:00)
[2023-04-28] MEDS: valACYclovir 500 MG TAB PO SCH (08:28)
[2023-04-28] MEDS: Venlafaxine 75 MG TAB PO SCH (08:28)
[2023-04-28] MEDS: Polyethylene Glycol 3350 17 GM Packet PO SCH (08:28)
[2023-04-28] MEDS: Sodium Chloride 0.45% 1,000 ML IV SCH ×2 (13:23→22:27)
[2023-04-28] MEDS: Prazosin HCl 1 MG CAP PO SCH (22:00)
[2023-04-29] MEDS: Dexamethasone 4 mg/ml Vial SLOW IVP SCH (06:24)
[2023-04-29] MEDS: Ondansetron HCl/PF 6 MG in Sodium Chloride 0.9% 50 ML IVPB SCH (06:26)
[2023-04-29] MEDS: Labetalol HCl 100 MG TAB PO SCH (08:36)
[2023-04-29] MEDS: Sucralfate 1 GM TAB PO SCH ×2 (08:36→12:32)
[2023-04-29] MEDS: valACYclovir 500 MG TAB PO SCH (08:36)
[2023-04-29] MEDS: Venlafaxine 75 MG TAB PO SCH (08:38)
[2023-04-29] MEDS: Polyethylene Glycol 3350 17 GM Packet PO SCH (08:38)
[2023-04-29 11:50] VITALS: BP 147/88; TEMP 98.5
== END 2023-04-29 15:38 | disposition home or self-care (01) | DRG 841 ==
LOC: ERS 14:29 → T4-B 16:33 → MSONC 04-23 17:43
PROVIDERS: ADMIT Family Medicine; ATTEND Internal Medicine
PROC: 079T3ZX Drainage of Bone Marrow, Percutaneous Approach, Diagnostic (ICD-10-PCS; 2023-04-20)
PROC: 30233N1 Transfusion of Nonautologous Red Blood Cells into Peripheral Vein, Percutaneous Approach (ICD-10-PCS; principal; 2023-04-24)
DX: C90.00 Multiple myeloma not having achieved remission (principal); N17.9 Acute kidney failure, unspecified; N30.00 Acute cystitis without hematuria; N18.4 Chronic kidney disease, stage 4 (severe); F43.10 Post-traumatic stress disorder, unspecified; E86.0 Dehydration; Z98.890 Other specified postprocedural states; N18.9 Chronic kidney disease, unspecified; Z79.899 Other long term (current) drug therapy; E83.52 Hypercalcemia; D63.1 Anemia in chronic kidney disease; E66.9 Obesity, unspecified; Z68.25 Body mass index [BMI] 25.0-25.9, adult; D63.0 Anemia in neoplastic disease; F41.9 Anxiety disorder, unspecified; D53.9 Nutritional anemia, unspecified
CPT/HCPCS: 20225; 36415; 36416; 36430; 74176; 76705; 76770; 77012; 77075; 80048; 80053; 81001; 82040; 82570; 83615; 83690; 83735; 83883; 83970; 84100; 84155; 84156; 84165; 84166; 84484; 84550; 85025; 85097; 85610; 85730; 86850; 86900; 86901; 87086; 88121; 88184; 88237; 88305; 88311; 88313; 88341; 88342; 88365; 93005; 93010; J0360; J0696; J1100; J2250; J2272; J2405; J2550; J3010; J3490; J7050; J7070; J8540; J9041; J9070; P9016

== ENCOUNTER 2023-06-26 12:06 | Outpatient (CLI) | payer OTHER ==
[2023-06-26] MEDS ORDERED: Magnevist 469MG/ML 20 ML VIAL ONE (14:27)
== END 2023-06-26 12:07 | disposition home or self-care (01) ==
LOC: PET 12:06
PROVIDERS: ATTEND Internal Medicine
DX: C90.00 Multiple myeloma not having achieved remission (principal); M54.50 Low back pain, unspecified
CPT/HCPCS: 72158; 78815; A9552; A9579

== ENCOUNTER 2023-08-18 11:58 | Outpatient (CLI) | payer OTHER | END 2023-08-18 11:59 | disposition home or self-care (01) | LOC: SCSMRI 11:58 | PROVIDERS: ATTEND Internal Medicine | DX: C90.00 Multiple myeloma not having achieved remission (principal); G44.221 Chronic tension-type headache, intractable | CPT/HCPCS: 70553 ==

== ENCOUNTER 2023-10-16 12:23 | Outpatient (CLI) | payer OTHER | END 2023-10-16 12:24 | disposition home or self-care (01) | LOC: RAD 12:23 | PROVIDERS: ATTEND Internal Medicine | DX: C90.00 Multiple myeloma not having achieved remission (principal); C79.51 Secondary malignant neoplasm of bone; D53.9 Nutritional anemia, unspecified ==

== ENCOUNTER 2023-11-17 11:26 | Outpatient (CLI) | payer OTHER | END 2023-11-17 11:27 | disposition home or self-care (01) | LOC: SCSMRI 11:26 | PROVIDERS: ATTEND Internal Medicine | DX: R42 Dizziness and giddiness (principal); Z85.79 Personal history of other malignant neoplasms of lymphoid, hematopoietic and related tissues | CPT/HCPCS: 70553 ==

== ENCOUNTER 2025-11-01 09:52 | Day surgery (SDC) | payer OTHER, BC ==
[2025-11-01] MEDS ORDERED: diphenhydrAMINE 25 MG CAP PO SCH (10:15)
[2025-11-01] MEDS ORDERED: Acetaminophen 500 MG TAB ONE (11:04)
[2025-11-01] MEDS: Acetaminophen 500 MG TAB PO SCH (11:05)
[2025-11-01 12:53] VITALS: TEMP 98.2
[2025-11-01 14:32] VITALS: BP 109/68
== END 2025-11-01 15:14 | disposition home or self-care (01) ==
LOC: ONC/OP 09:52
PROVIDERS: ATTEND Internal Medicine
DX: D69.6 Thrombocytopenia, unspecified (principal); D53.9 Nutritional anemia, unspecified; C90.00 Multiple myeloma not having achieved remission; C79.51 Secondary malignant neoplasm of bone
CPT/HCPCS: 36430; 86850; 86900; 86901; P9016; P9035

== ENCOUNTER 2025-11-07 09:58 | Day surgery (SDC) | payer OTHER ==
[~2025-11-07 09:58] MED LIST changes: -Midazolam HCl 2 mg/2 ml Vial ONE; -Sodium Bicarbonate 2.5 MEQ/5 ML VIAL ONE; +diphenhydrAMINE 25 MG CAP PO SCH; -fentaNYL 50 mcg/mL 1 mL Vial ONE
[2025-11-07] MEDS ORDERED: Acetaminophen 500 MG TAB ONE (10:32)
[2025-11-07] MEDS: Acetaminophen 500 MG TAB PO SCH (10:33)
[2025-11-07] MEDS: diphenhydrAMINE 25 MG CAP ONE (11:47)
[2025-11-07 13:24] VITALS: BP 123/68; TEMP 98.5
== END 2025-11-07 14:35 | disposition home or self-care (01) ==
LOC: ONC/OP 09:58
PROVIDERS: ATTEND Internal Medicine
DX: D53.9 Nutritional anemia, unspecified (principal); C90.00 Multiple myeloma not having achieved remission; C79.51 Secondary malignant neoplasm of bone
CPT/HCPCS: 36430; 86850; 86900; 86901; 96360; 96361; P9016

== ENCOUNTER → 2025-11-09 | Day surgery (SDC) | payer OTHER ==
[2025-11-09 11:26] LABS: Hematocrit 25.5 % (42.0-52.0); Hemoglobin 8.6 g/dL (14.0-18.0); Mean Corpuscular Hemoglobin 31.4 pg (27.0-31.0); Mean Corpuscular Volume 93.1 fL (78.0-98.0); Platelet Count 15 10x3/uL (130-400); Red Blood Cell (RBC) Count 2.74 mill/uL (4.70-6.10); White Blood Cell (WBC) Count 1.38 10x3/uL (4.8-10.8)
[2025-11-09 11:39] LABS: ALT (SGPT) 17 U/L (Less than 45); AST (SGOT) 19 U/L (11-34); Albumin 3.4 g/dL (3.1-4.5); Alkaline Phosphatase 142 U/L (40-110); Anion Gap 13 mmol/L (10-20); BUN (Urea Nitrogen) 22 mg/dL (8.9-20.6); Bilirubin, Total 0.5 mg/dL (0.3-1.2); Calc. Creatinine Clearance 0 mL/min (70-130); Calcium 8.3 mg/dL (7.8-10.44); Carbon Dioxide 23 mmol/L (22-29); Chloride 110 mmol/L (98-107); Globulin 1.6 g/dL (2.4-3.5); Glucose 80 mg/dL (70-105); Potassium 4.1 mmol/L (3.5-5.1); Sodium 142 mmol/L (136-145)
[2025-11-09 11:48] LABS: Anisocytosis SLIGHT = 6-15 cells HPF (0-5); Nucleated RBC (Manual Ct) 1 % (0); Platelet Adequacy Comment Platelets Decreased; Polychromasia SLIGHT = 2-3 cells HPF (0-2); RBC Morphology Within Normal Limits; Smudge Cells 9.9 %
== END ==
LOC: ER/OP 09:49
PROVIDERS: ATTEND Internal Medicine Hematology & Oncology
DX: D69.6 Thrombocytopenia, unspecified (principal); Z98.84 Bariatric surgery status; Z88.6 Allergy status to analgesic agent
CPT/HCPCS: 36430; 80053; 85025; 86850; 86900; 86901; 99282; P9035